=== PATIENT | male | born 1990 | race Caucasian/White ===

== ENCOUNTER 2017-11-14 20:40 | Emergency (ER) | payer OTHER ==
[~2017-11-14] VITALS: Ht 180.3 cm; Wt 70.3 kg
[~2017-11-14 20:40] MED LIST: ARIP10TA17 PO; CLON0.1T PO; DICY20TA11 PO; IBUP-1953 PO; LITH450T2 PO; METH-406 PO; ONDA4TAB5 PO; PHEN30TA40 PO; QUET50TA PO; SENN1TAB33 PO; TRAM50TA PO; VALP250C3 PO
[2017-11-14] MEDS ORDERED: SUBOXONE SL (21:00)
[2017-11-14] MEDS ORDERED: GABA600T2 PO (21:00)
[2017-11-14] MEDS ORDERED: LITH300C2 PO (21:00)
--- NOTE | 2017-11-14 21:21 | NUR ---
PT IN BED. MD DOBBINS AT BEDSIDE CONDUCTING MD PRESLEY.
[2017-11-14 21:43] LABS: BASOPHILS # (AUTO) 0.1 K/uL (0.0-8.0); BASOPHILS % (AUTO) 0.6 % (0.0-2.0); EOSINOPHILS % (AUTO) 0.5 % (0.0-7.0); HEMOGLOBIN 13.3 g/dL (12.5-16.3); MEAN CORPUSCULAR HEMOGLOBIN 31.8 uug (23.8-33.4); MEAN CORPUSCULAR HGB CONC 35 g/dL (32.5-36.3); MEAN CORPUSCULAR VOLUME 90.5 fL (73.0-96.2); MONOCYTES # (AUTO) 0.7 K/uL (2.0-10.0); NEUTROPHILS # (AUTO) 6.5 K/uL (1.8-8.9); NEUTROPHILS % (AUTO) 69.9 % (38.5-71.5); PLATELET COUNT (AUTO) 204 K/uL (152-348); WHITE BLOOD COUNT (AUTO) 9.3 K/uL (3.6-10.2)
[2017-11-14 21:47] LABS: POTASSIUM 3.7 mmol/L (3.5-5.1)
--- NOTE | 2017-11-14 22:10 | NUR ---
Patient discharged to home in stable conditon. Written and verbal after care instructions given. Patient verbalizes understanding of instructions. Patient reported reduced anxiety about lithium levels after seeing lab results. Patient able to ambulate unassisted with steady gait. Patient left with all personal belongings.
[2017-11-14 22:17] VITALS: BP 138/88
== END 2017-11-14 22:10 | disposition home or self-care (01) ==
LOC: ER 20:40
DX: F41.1 Generalized anxiety disorder (principal); G89.29 Other chronic pain; F12.10 Cannabis abuse, uncomplicated; F15.10 Other stimulant abuse, uncomplicated; Z88.8 Allergy status to other drugs, medicaments and biological substances; Z91.013 Allergy to seafood; Z79.899 Other long term (current) drug therapy; Z79.2 Long term (current) use of antibiotics; Z79.1 Long term (current) use of non-steroidal anti-inflammatories (NSAID)
CPT/HCPCS: 36415; 70030-TC; 85025; 93005; A4663

== ENCOUNTER 2018-03-03 20:42 | Emergency (ER) | payer OTHER ==
[~2018-03-03] VITALS: Ht 180.3 cm; Wt 70.3 kg
[~2018-03-03 20:42] MED LIST changes: -ARIP10TA17 PO; -CLON0.1T PO; -DICY20TA11 PO; +GABA600T2 PO; -IBUP-1953 PO; +LITH300C2 PO; -LITH450T2 PO; -METH-406 PO; -ONDA4TAB5 PO; -PHEN30TA40 PO; -QUET50TA PO; -SENN1TAB33 PO; +SUBOXONE SL; -TRAM50TA PO; -VALP250C3 PO
--- NOTE | 2018-03-03 21:23 | NUR ---
PT PRESENTS TO ER W/ C/O L MIDDLE FINGER LACERATION. PER PT, HE WAS CUTTING FOOD AT HIS WORK IN A [employer] WHEN HE CUT HIS FINGER. NO ACTIVE BLEEDING NOTED AT THIS TIME. WOULD CLEANSED AND IRRIGATED W/ NS.
--- NOTE | 2018-03-03 22:04 | NUR ---
PT RESTING IN BED IN A POSITION OF COMFORT. NO DISTRESS NNOTED AT THIS TIME. PENDING MSE.
--- NOTE | 2018-03-03 22:54 | NUR ---
DR CELINE VILLAVICENCIO MD AT BEDSIDE FOR MSE.
[2018-03-03] MEDS ORDERED: LIDOCAINE HCL 1% 20 ML VIAL IJ ONE (23:30)
[2018-03-03] MEDS ORDERED: TDAP DIPH,PERTUSS,TET VAC/PF 0.5 ML DISP.SYRIN IM ONE ×2 (23:30→23:32)
--- NOTE | 2018-03-03 23:42 | NUR ---
Patient discharged to home in stable conditon. Written and verbal after care instructions given. Patient verbalizes understanding of instructions. Pt ambulated from ER accompanied by girlfriend. No distress noted. Pt took all personal belongings.
[2018-03-03 23:43] VITALS: BP 122/74
== END 2018-03-03 23:46 | disposition home or self-care (01) ==
LOC: ER 20:45
DX: S61.211A Laceration without foreign body of left index finger without damage to nail, initial encounter (principal); F11.10 Opioid abuse, uncomplicated; F12.10 Cannabis abuse, uncomplicated; Z88.8 Allergy status to other drugs, medicaments and biological substances; Z91.013 Allergy to seafood; Z79.899 Other long term (current) drug therapy; W26.0XXA Contact with knife, initial encounter; Y93.89 Activity, other specified; Y92.89 Other specified places as the place of occurrence of the external cause; Y99.8 Other external cause status
CPT/HCPCS: 12001; 90471; 90715; 99283; A4663; J3490

== ENCOUNTER 2020-05-02 14:21 | Emergency (ER) | payer OTHER ==
[~2020-05-02] VITALS: Ht 177.8 cm; Wt 72.6 kg
[~2020-05-02 14:21] MED LIST changes: +GABA600T12 PO; -GABA600T2 PO
[2020-05-02] MEDS ORDERED: NEOMY/BACITRA/POLYMYXIN B OINT UD PACKET TP ONE ×2 (15:20→15:30)
== END 2020-05-02 15:36 | disposition home or self-care (01) ==
LOC: ER 14:21
DX: S92.422A Displaced fracture of distal phalanx of left great toe, initial encounter for closed fracture (principal); W20.8XXA Other cause of strike by thrown, projected or falling object, initial encounter; Y92.89 Other specified places as the place of occurrence of the external cause; Z88.8 Allergy status to other drugs, medicaments and biological substances; Z91.013 Allergy to seafood; G89.29 Other chronic pain; Z91.5 Personal history of self-harm; Z79.899 Other long term (current) drug therapy; F41.9 Anxiety disorder, unspecified
CPT/HCPCS: 73660; A4663

== ENCOUNTER 2020-05-03 18:44 | Emergency (ER) | payer OTHER ==
[~2020-05-03] VITALS: Ht 177.8 cm; Wt 72.6 kg
--- NOTE | 2020-05-03 19:05 | NUR ---
Dr. Pérez at bedside for MSE
[2020-05-03] MEDS ORDERED: CHLORDIAZEPOXIDE HCL 25 MG CAPSULE ONE (19:14)
[2020-05-03] MEDS ORDERED: CHLORDIAZEPOXIDE HCL 25 MG CAPSULE PO ONE (19:15)
--- NOTE | 2020-05-03 19:19 | NUR ---
Patient discharged to home in stable condition. Written and verbal after care instructions given. Patient verbalizes understanding of instructions. Stressed follow up or return to ER for worsening s/s. aa/ox4. able to speak in complete sentences in stable condition respirations even and unlabored ambulatory with steady gait all belongings with pt pt's friend will drive pt home
[2020-05-03 19:29] VITALS: BP 104/82
== END 2020-05-03 19:20 | disposition home or self-care (01) ==
LOC: ER 18:46
DX: F10.239 Alcohol dependence with withdrawal, unspecified (principal); Z88.8 Allergy status to other drugs, medicaments and biological substances; Z91.013 Allergy to seafood; G89.29 Other chronic pain; F19.11 Other psychoactive substance abuse, in remission; F41.9 Anxiety disorder, unspecified
CPT/HCPCS: A4663

== ENCOUNTER 2020-11-28 18:44 | Emergency (ER) | payer OTHER ==
[~2020-11-28] VITALS: Ht 177.8 cm; Wt 70.3 kg
[2020-11-28] MEDS ORDERED: IV NORMAL SALINE 1000 ML BAG IV ONE (19:15)
--- NOTE | 2020-11-28 19:30 | NUR ---
biological science technician in room to draw blood on patient.
--- NOTE | 2020-11-28 19:39 | NUR ---
foundry technician in room to do x-rays on patient.
[2020-11-28 19:48] LABS: BASOPHILS % (AUTO) 0.7 % (0.0-2.0); EOSINOPHILS % (AUTO) 0.5 % (0.0-7.0); HEMATOCRIT 39.2 % (36.7-47.1); HEMOGLOBIN 13.3 g/dL (12.5-16.3); LYMPHOCYTES # (AUTO) 1.4 K/uL (20.0-40.0); LYMPHOCYTES % (AUTO) 26.1 % (20.5-51.5); MEAN CORPUSCULAR HEMOGLOBIN 31.3 uug (23.8-33.4); MEAN CORPUSCULAR HGB CONC 34 g/dL (32.5-36.3); MEAN CORPUSCULAR VOLUME 92.2 fL (73.0-96.2); MONOCYTES # (AUTO) 0.3 K/uL (2.0-10.0); MONOCYTES % (AUTO) 6.3 % (0.0-11.0); NEUTROPHILS # (AUTO) 3.7 K/uL (1.8-8.9); NEUTROPHILS % (AUTO) 66.4 % (38.5-71.5); PLATELET COUNT (AUTO) 207 K/uL (152-348); RED BLOOD CELL COUNT(AUTO) 4.26 MIL/uL (4.06-5.63); WHITE BLOOD COUNT (AUTO) 5.6 K/uL (3.6-10.2)
[2020-11-28 19:57] LABS: BILIRUBIN,DIRECT 0.1 mg/dL (0.0-0.2); BILIRUBIN,TOTAL 0.5 mg/dL (0.2-1.0); POTASSIUM 3.9 mmol/L (3.5-5.1); TOTAL PROTEIN, SERUM 8.1 g/dL (6.4-8.2)
[2020-11-28 20:05] LABS: THYROID STIMULATING HORMONE 1.358 mIU/mL (0.358-3.740)
--- NOTE | 2020-11-28 20:06 | NUR ---
Patient is resting upright on bed, no acute distress is noted at this time.
[2020-11-28 20:15] LABS: *BILIRUBIN,URIN NEGATIVE (NEGATIVE); *BLOOD, URINE NEGATIVE (NEGATIVE); *CLARITY,URINE CLEAR (CLEAR); *COLOR,URINE YELLOW (YELLOW); *KETONES,URINE NEGATIVE (NEGATIVE); *UROBILINOGEN,URINE 0.2 E.U./dl (NORMAL); LEUKOCYTE ESTERASE ,URINE NEGATIVE (NEGATIVE); NITRITE, URINE NEGATIVE (NEGATIVE); PH,URINE 7.5 (5.0-8.0); UGLUCOSE NEGATIVE (NEGATIVE)
[2020-11-28] MEDS ORDERED: CHLORDIAZEPOXIDE HCL 25 MG CAPSULE PO ONE (20:15)
[2020-11-28] MEDS ORDERED: CHLORDIAZEPOXIDE HCL 25 MG CAPSULE ONE (20:18)
[2020-11-28] MEDS ORDERED: IV NS 1000 ML 1,000 ML IV ONE (20:30)
[2020-11-28] MEDS ORDERED: FOLIC ACID 5 MG/ML VIAL IV ONE ×2 (20:30→20:42)
[2020-11-28] MEDS ORDERED: THIAMINE HCL 200 MG/2 ML VIAL IV ONE (20:30)
[2020-11-28] MEDS: MAGNESIUM SULFATE/D5W 100 ML IV SCH ×2 (20:40→21:30)
[2020-11-28] MEDS ORDERED: MAGNESIUM SULFATE/D5W 100 ML ONE ×2 (20:41→20:47)
[2020-11-28] MEDS ORDERED: THIAMINE HCL 200 MG/2 ML VIAL ONE (20:41)
--- NOTE | 2020-11-28 21:00 | NUR ---
Patient is resting on bed, using phone. No acute distress noted.
[2020-11-28] MEDS ORDERED: CHLO25CA22 PO (21:16)
[2020-11-28] MEDS ORDERED: ONDA4TAB11 PO (21:19)
--- NOTE | 2020-11-28 22:45 | NUR ---
Patient discharged to home in stable condition. Written and verbal after care instructions given. Patient verbalizes understanding of instructions. Stressed follow up or return to ER for worsening s/s. Patient ambulates with steady gait, Rx electronically sent, left with all personal belongings.
[2020-11-28 22:58] VITALS: BP 127/90
== END 2020-11-28 22:45 | disposition home or self-care (01) ==
LOC: ER 18:47
DX: F10.239 Alcohol dependence with withdrawal, unspecified (principal); Y90.1 Blood alcohol level of 20-39 mg/100 ml; R51.9 Headache, unspecified; Z20.822 Contact with and (suspected) exposure to COVID-19; F15.10 Other stimulant abuse, uncomplicated; F13.10 Sedative, hypnotic or anxiolytic abuse, uncomplicated; F41.9 Anxiety disorder, unspecified; G89.29 Other chronic pain; Z88.8 Allergy status to other drugs, medicaments and biological substances; Z91.013 Allergy to seafood; R00.0 Tachycardia, unspecified
CPT/HCPCS: 36415; 70450; 71045; 80048; 80076; 80320; 81003; 82550; 83605; 83690; 84443; 85025; 87400; 87426; 93005; 96361; 96365; 96375; 99285; J3411; J3475 ×2; J3490; A4663; G0480

== ENCOUNTER 2021-10-05 09:38 | Emergency (ER) | payer OTHER ==
[~2021-10-05] VITALS: Ht 180.3 cm; Wt 77.1 kg
[~2021-10-05 09:38] MED LIST changes: +CHLO25CA22 PO; +ONDA4TAB11 PO; -SUBOXONE SL
[2021-10-05] MEDS ORDERED: LIDOCAINE 2% (UROJET) 10 ML JELLY MM ONE ×2 (10:00→10:09)
[2021-10-05 10:26] LABS: HEMATOCRIT 42.7 % (36.7-47.1); MEAN CORPUSCULAR HEMOGLOBIN 30.4 uug (23.8-33.4); MEAN CORPUSCULAR VOLUME 89.5 fL (73.0-96.2); PLATELET COUNT (AUTO) 200 K/uL (152-348)
[2021-10-05 10:30] LABS: CREATININE 1.1 mg/dL (0.6-1.3); POTASSIUM 4.1 mmol/L (3.5-5.1)
--- NOTE | 2021-10-05 10:45 | NUR ---
PT IS IN ROOM #2B. DR LOMELI EVALUATED THE PT.
[2021-10-05 10:54] LABS: *BILIRUBIN,URIN 1+ (NEGATIVE); *BLOOD, URINE 1+ (NEGATIVE); *CLARITY,URINE CLEAR (CLEAR); *COLOR,URINE YELLOW (YELLOW); *KETONES,URINE NEGATIVE (NEGATIVE); *UROBILINOGEN,URINE 0.2 E.U./dl (NORMAL); LEUKOCYTE ESTERASE ,URINE NEGATIVE (NEGATIVE); NITRITE, URINE NEGATIVE (NEGATIVE); PH,URINE 5.5 (5.0-8.0); UGLUCOSE NEGATIVE (NEGATIVE)
[2021-10-05 11:18] LABS: BILIRUBIN,DIRECT 0.1 mg/dL (0.0-0.2); BILIRUBIN,TOTAL 0.3 mg/dL (0.2-1.0); TOTAL PROTEIN, SERUM 7.3 g/dL (6.4-8.2)
[2021-10-05] MEDS ORDERED: QUET300T2 PO (11:57)
[2021-10-05] MEDS ORDERED: CARI4.5C PO (11:57)
[2021-10-05] MEDS ORDERED: SENN-148 PO (11:57)
[2021-10-05] MEDS ORDERED: PRAZ2CAP2 PO (11:57)
[2021-10-05] MEDS ORDERED: TRAZ-182 PO (11:57)
--- NOTE | 2021-10-05 12:23 | NUR ---
PT WAS D/C'd TO HOME. D/C INSTRUCTIONS GIVEN TO THE PT BY DR LOMELI.
[2021-10-05 12:24] VITALS: BP 136/79
[2021-10-05 13:13] LABS: BACTERIA,URINE NONE SEEN /HPF (NONE SEEN); WBC,URINE 0-3 /HPF (0-3)
[2021-10-05 13:14] LABS: SQUAMOUS EPITHELIAL CELL,UR FEW /HPF (NONE SEEN); URINE AMORPHOUS URATE MODERATE /HPF
[2021-10-05 13:15] LABS: CALCIUM OXALATE CRYSTALS,UR FEW /HPF (NONE SEEN)
== END 2021-10-05 12:25 | disposition home or self-care (01) ==
LOC: ER 09:38
DX: R33.0 Drug induced retention of urine (principal); T44.3X5A Adverse effect of other parasympatholytics [anticholinergics and antimuscarinics] and spasmolytics, initial encounter; Y92.199 Unspecified place in other specified residential institution as the place of occurrence of the external cause; F31.9 Bipolar disorder, unspecified; F10.21 Alcohol dependence, in remission; F41.9 Anxiety disorder, unspecified; Z88.8 Allergy status to other drugs, medicaments and biological substances; Z91.013 Allergy to seafood
CPT/HCPCS: 36415; 51702; 85025; 87086; A4663

== ENCOUNTER 2021-11-20 12:05 | Emergency (ER) | payer OTHER ==
[~2021-11-20] VITALS: Ht 180.3 cm; Wt 77.1 kg
[~2021-11-20 12:05] MED LIST changes: +CARI4.5C PO; -CHLO25CA22 PO; -LITH300C2 PO; -ONDA4TAB11 PO; +PRAZ2CAP2 PO; +QUET300T2 PO; +SENN-148 PO; +TRAZ-182 PO
[2021-11-20] MEDS ORDERED: LIDOCAINE 2% (UROJET) 10 ML JELLY MM ONE ×2 (13:00→13:02)
--- NOTE | 2021-11-20 13:30 | NUR ---
PT SEEN AND EVALUATED BY DR JAMES. BLADDER US DONE AT BEDSIDE BY . INDWELLING DÍAZ CATH PLACED WITH LEG BAG. 650 ML OF [place]ED URINE OBTAINED.
[2021-11-20] MEDS ORDERED: SENNOSIDES 1 TABLET PO ONE (13:45)
[2021-11-20 13:58] LABS: *BILIRUBIN,URIN NEGATIVE (NEGATIVE); *BLOOD, URINE NEGATIVE (NEGATIVE); *CLARITY,URINE CLEAR (CLEAR); *COLOR,URINE YELLOW (YELLOW); *KETONES,URINE NEGATIVE (NEGATIVE); LEUKOCYTE ESTERASE ,URINE NEGATIVE (NEGATIVE); NITRITE, URINE NEGATIVE (NEGATIVE); PH,URINE 8.5 (5.0-8.0); UGLUCOSE NEGATIVE (NEGATIVE)
[2021-11-20] MEDS ORDERED: SENN-148 PO (14:15)
--- NOTE | 2021-11-20 14:23 | NUR ---
Patient discharged to home in stable condition. Written and verbal after care instructions given. Patient verbalizes understanding of instructions. Stressed follow up or return to ER for worsening s/s.
[2021-11-20 14:29] VITALS: BP 119/79
== END 2021-11-20 14:30 | disposition home or self-care (01) ==
LOC: ER 12:05
DX: R33.9 Retention of urine, unspecified (principal); F31.9 Bipolar disorder, unspecified; F11.11 Opioid abuse, in remission; Z79.899 Other long term (current) drug therapy; Z91.013 Allergy to seafood; Z88.8 Allergy status to other drugs, medicaments and biological substances
CPT/HCPCS: 51702; A4663; C1758

== ENCOUNTER 2021-11-21 05:35 | Emergency (ER) | payer OTHER ==
[~2021-11-21] VITALS: Ht 182.9 cm; Wt 74.8 kg
[~2021-11-21 05:35] MED LIST changes: -QUET300T2 PO; -TRAZ-182 PO
--- NOTE | 2021-11-21 05:40 | NUR ---
Dr. Pérez at bedside for MSE.
[2021-11-21] MEDS ORDERED: LIDOCAINE 2% (UROJET) 10 ML JELLY MM ONE ×2 (05:45→05:53)
--- NOTE | 2021-11-21 06:12 | NUR ---
coude catheter insertion 14 fr placed per order. Addendum: 11/21/21 at 0613 by AIDEE coude catheter insertion balloon was inflated.
[2021-11-21] MEDS ORDERED: OXYCODONE/APAP 5-325 MG TABLET PO ONE (06:15)
[2021-11-21 06:24] VITALS: BP 126/73
[2021-11-21] MEDS ORDERED: OXYCODONE/APAP 5-325 MG TABLET ONE (06:27)
== END 2021-11-21 06:25 | disposition home or self-care (01) ==
LOC: ER 05:37
DX: R33.9 Retention of urine, unspecified (principal); G89.29 Other chronic pain; F10.20 Alcohol dependence, uncomplicated; F15.10 Other stimulant abuse, uncomplicated; F11.10 Opioid abuse, uncomplicated; F13.10 Sedative, hypnotic or anxiolytic abuse, uncomplicated; F31.9 Bipolar disorder, unspecified; Z79.899 Other long term (current) drug therapy; Z88.8 Allergy status to other drugs, medicaments and biological substances; Z91.013 Allergy to seafood
CPT/HCPCS: 51702; A4663

== ENCOUNTER 2021-11-23 19:15 | Emergency (ER) | payer OTHER ==
[~2021-11-23] VITALS: Ht 180.3 cm; Wt 72.6 kg
--- NOTE | 2021-11-23 20:00 | NUR ---
DR. SOMMER AT BEDSIDE, MSE IN PROGRESS.
--- NOTE | 2021-11-23 20:28 | NUR ---
Pt provided urine sample, sent to lab.
[2021-11-23 20:42] LABS: *BILIRUBIN,URIN NEGATIVE (NEGATIVE); *BLOOD, URINE 3+ (NEGATIVE); *CLARITY,URINE CLOUDY (CLEAR); *KETONES,URINE TRACE (NEGATIVE); LEUKOCYTE ESTERASE ,URINE TRACE (NEGATIVE); NITRITE, URINE NEGATIVE (NEGATIVE); PH,URINE 5.5 (5.0-8.0); UGLUCOSE NEGATIVE (NEGATIVE)
[2021-11-23 20:45] LABS: *COLOR,URINE BLOODY (YELLOW)
[2021-11-23 20:49] LABS: BACTERIA,URINE NONE SEEN /HPF (NONE SEEN); RBC,URINE TNTC /HPF (0-3); SQUAMOUS EPITHELIAL CELL,UR NONE SEEN /HPF (NONE SEEN)
--- NOTE | 2021-11-23 21:10 | NUR ---
Patient discharged to home in stable condition. Written and verbal after care instructions given. Patient verbalizes understanding of instructions. Stressed follow up or return to ER for worsening s/s. Steady gait, no SOB or labored breathing. Denies any pain/diascomfort upon discharge.
[2021-11-24 00:08] VITALS: BP 112/60
== END 2021-11-23 21:15 | disposition home or self-care (01) ==
LOC: ER 19:15
DX: Z43.6 Encounter for attention to other artificial openings of urinary tract (principal); G89.29 Other chronic pain; F15.10 Other stimulant abuse, uncomplicated; F11.10 Opioid abuse, uncomplicated; F13.10 Sedative, hypnotic or anxiolytic abuse, uncomplicated; F10.20 Alcohol dependence, uncomplicated; Z88.8 Allergy status to other drugs, medicaments and biological substances; Z91.013 Allergy to seafood
CPT/HCPCS: A4663

== ENCOUNTER 2024-03-01 10:44 | Emergency (ER) | payer OTHER ==
[~2024-03-01] VITALS: Ht 180.3 cm; Wt 68.0 kg
[2024-03-01] MEDS ORDERED: QUET50TA PO (11:12)
[2024-03-01 11:59] VITALS: BP 109/59; O2SAT 97
== END 2024-03-01 11:59 | disposition home or self-care (01) ==
LOC: ER 10:44
DX: T16.1XXA Foreign body in right ear, initial encounter (principal); F41.9 Anxiety disorder, unspecified; Z91.013 Allergy to seafood; Z79.899 Other long term (current) drug therapy; Z79.891 Long term (current) use of opiate analgesic; Z60.2 Problems related to living alone; Z88.1 Allergy status to other antibiotic agents; Y92.89 Other specified places as the place of occurrence of the external cause
CPT/HCPCS: A4606; A4663